=== PATIENT | male | born 1985 | race Hispanic/Latino ===

== ENCOUNTER 2021-08-17 21:39 | Emergency (ER) | payer OTHER ==
[~2021-08-17] VITALS: Ht 177.8 cm; Wt 86.2 kg
[2021-08-17] MEDS ORDERED: ACET-2247 PO (22:28)
[2021-08-17] MEDS ORDERED: NIRM1TAB PO (22:28)
[2021-08-17] MEDS ORDERED: ACETAMINOPHEN 500 MG TABLET PO ONE (22:30)
[2021-08-17] MEDS ORDERED: CLONIDINE HCL 0.1 MG TABLET PO ONE (22:30)
[2021-08-17] MEDS ORDERED: NIFEDIPINE 10 MG CAP PO SCH (22:30)
[2021-08-17 23:09] VITALS: BP 164/96
== END 2021-08-17 23:11 | disposition home or self-care (01) ==
LOC: EDH 21:39
DX: U07.1 COVID-19 (principal); I10 Essential (primary) hypertension; Z79.899 Other long term (current) drug therapy
CPT/HCPCS: 87635; 99283; C9803